=== PATIENT | male | born 1950 | race Caucasian/White ===

== ENCOUNTER 2019-02-28 00:15 | Outpatient (CLI) | payer OTHER, SELFPAY ==
--- NOTE | 2019-02-28 10:30 | MERGE_ITS ---
*[facility]* *[facility]* [address] [place] [address] Date of study: 02/28/2019 Transthoracic Echocardiography M-mode, complete 2D, complete spectral Doppler, and color Doppler *STUDY CONCLUSIONS* Summary: 1. Left ventricle: The cavity size was normal. There was severe asymmetric hypertrophy of the septum. Systolic function was at the lower limits of normal. The estimated ejection fraction was 50-55%. There was no dynamic obstruction. Akinesis of the basalinferolateral and inferior myocardium. Diastolic parameters were normal. 2. Aortic valve: Trileaflet. Sclerosis without stenosis. 3. 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 The maximal diameter was 4.5cm. 4. Mitral valve: Mildly calcified annulus. There was mild regurgitation directed eccentrically. 5. Right ventricle: The cavity size was dilated. Wall thickness was increased. Systolic function was mildly reduced by visual assessment. *PATIENT PRESENTATION* Height: 188cm (74in ) S/D Pressure: 136 / 83 Weight: 170.1kg (374.2lb ) BSA: 3.06m^2 Test start time: 10:40 AM. Test stop time: 11:40 AM. PERFORMING Unknown PERFORMING [facility] TECHNICAL AGRONOMIST RT Julian PortilloR)(CT), [facility] CONSULTING Agustní Neri ORDERING Agustín Neri REFERRING Agustín Neri [place], [place] *PROCEDURE DATA* Procedure information: This study was interpreted by [facility]. Pertinent images and digital data are archived for permanent storage and are available for subsequent review. No prior study was available for comparison. Study status: Routine. Transthoracic echocardiography. M-mode, complete 2D, complete spectral Doppler, and color Doppler. A Transthoracic Echocardiogram was performed. Scanning was performed from the parasternal, apical, subcostal, and suprasternal notch acoustic windows. Images were obtained using an [id number] cardiac ultrasound machine. Image quality was adequate. Study completion: The patient tolerated the procedure well. There were no complications. History: PMH: Coronary artery disease i25.10 *CARDIAC ANATOMY* Left ventricle: The cavity size was normal. There was severe asymmetric hypertrophy of the septum. Systolic function was at the lower limits of normal. The estimated ejection fraction was 50-55%. There was no dynamic obstruction. Regional wall motion abnormalities: Akinesis of the basalinferolateral and inferior myocardium. Diastolic parameters were normal. Aortic valve: Trileaflet. Sclerosis without stenosis. Mobility was not restricted. Doppler: Transvalvular velocity was within the normal range. There was no stenosis. There was no significant regurgitation. VTI ratio of LVOT to aortic valve: 0.62. Valve area (VTI): 2.6cm^2. Indexed valve area (VTI): 0.8cm^2/m^2. Peak velocity ratio of LVOT to aortic valve: 0.58. Valve area (Vmax): 2.4cm^2. Indexed valve area (Vmax): 0.8cm^2/m^2. Mean velocity ratio of LVOT to aortic valve: 0.51. Valve area (Vmean): 2.1cm^2. Indexed valve area (Vmean): 0.7cm^2/m^2. Mean gradient (S): 6.2mm Hg. Peak gradient (S): 10.8mm Hg. 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 The maximal diameter was 4.5cm. Aortic root: The aortic root was moderately dilated. Ascending aorta: The ascending aorta was moderately dilated. Aortic arch: The aortic arch was mildly dilated. Mitral valve: Mildly calcified annulus. Mobility was not restricted. Doppler: Transvalvular velocity was within the normal range. There was no evidence for stenosis. There was mild regurgitation directed eccentrically. Valve area by pressure half-time: 3.8cm^2. Indexed valve area by pressure half-time: 1.2cm^2/m^2. Peak gradient (D): 2.4mm Hg. Left atrium: The atrium was normal in size. Right ventricle: The cavity size was dilated. Wall thickness was increased. Systolic function was mildly reduced by visual assessment. Pulmonic valve: Doppler: Transvalvular velocity was within the normal range. There was no evidence for stenosis. There was no significant regurgitation. Peak gradient (S): 2.1mm Hg. Tricuspid valve: Structurally normal valve. Doppler: Transvalvular velocity was within the normal range. There was no evidence for stenosis. There was no significant regurgitation. Pulmonary artery: Systolic pressure could not be accurately estimated. Right atrium: The atrium was normal in size. Pericardium: There was no pericardial effusion. Systemic veins: Inferior vena cava: Well visualized. The vessel was patent and normal in size. The respirophasic diameter changes were blunted (less than 50%). Baseline ECG: Normal sinus rhythm. Measurements Left ventricle Value Reference LV ID, ED, PLAX (H) 7.3 cm 3.5 - 6.0 LV ID, ES, PLAX (H) 6.1 cm 2.1 - 4.0 LV PW thickness, ED, PLAX 0.8 cm --------- LV end-diastolic volume, 1-p A2C 170 ml --------- LV ejection fraction, 1-p A2C 23 % --------- LV end-diastolic volume, 1-p A4C 236 ml --------- LV ejection fraction, 1-p A4C 39 % --------- LV e', lateral 0.095 m/sec --------- LV E/e', lateral 8 --------- LV e', medial 0.097 m/sec --------- LV E/e', medial 8 --------- LV e', average 0.096 m/sec --------- LV E/e', average 8 --------- Ventricular septum Value Reference IVS thickness, ED, PLAX 1.8 cm --------- LVOT Value Reference LVOT ID, S 2.3 cm --------- LVOT ID, A-P 2.3 cm --------- LVOT area 4.2 cm^2 --------- LVOT peak velocity, S 0.95 m/sec --------- LVOT mean velocity, S 0.61 m/sec --------- LVOT VTI, S 20.3 cm --------- LVOT peak gradient, S 3.6 mm Hg --------- LVOT mean gradient, S 1.7 mm Hg --------- Stroke volume (SV), LVOT DP 101 ml --------- Stroke index (SV/bsa), LVOT DP 33 ml/m^2 --------- Aortic valve Value Reference Aortic valve peak velocity, S 1.6 m/sec --------- Aortic valve mean velocity, S 1.2 m/sec --------- Aortic valve VTI, S 33.0 cm --------- Aortic mean gradient, S 6.2 mm Hg --------- Aortic peak gradient, S 10.8 mm Hg --------- VTI ratio, LVOT/AV 0.62 --------- Aortic valve area, VTI 2.6 cm^2 --------- Velocity ratio, peak, LVOT/AV 0.58 --------- Aortic valve area, peak velocity 2.4 cm^2 --------- Velocity ratio, mean, LVOT/AV 0.51 --------- Aortic valve area, mean velocity 2.1 cm^2 --------- Aortic valve area/bsa, mean velocity 0.7 cm^2/m^2 --------- Aorta Value Reference Aortic root ID, ED 4.5 cm --------- Ascending aorta ID, A-P, S 4.4 cm --------- Left atrium Value Reference LA ID, A-P, ES 4.5 cm --------- LA ID/bsa, A-P 1.5 cm/m^2 <=2.2 LA volume/bsa, ES, 1-p A4C 27 ml/m^2 --------- LA/aortic root ratio 1 --------- Mitral valve Value Reference Mitral E-wave peak velocity 0.77 m/sec --------- Mitral A-wave peak velocity 0.78 m/sec --------- Mitral deceleration time 201 ms 150 - 230 Mitral pressure half-time 58 ms --------- Mitral peak gradient, D 2.4 mm Hg --------- Mitral E/A ratio, peak 0.99 --------- Mitral valve area, PHT, DP 3.8 cm^2 --------- Pulmonic valve Value Reference Pulmonic peak gradient, S 2.1 mm Hg --------- Legend: (L) and (H) lucian values outside specified reference range. I have personally reviewed the images and have reviewed and edited the reported findings. Electronically signed by Isaiah Wilkinson 02/28/2019 17:30
[2019-02-28 10:36] LABS: Bilirubin Negative (Negative); Blood Negative (Negative); Clarity Clear (Clear); Glucose Negative (Negative); Ketones Trace mg/dL (Negative); Leukocyte Esterase Negative (Negative); Nitrite Negative (Negative); Specific Gravity 1.025 (1.005-1.025); Urobilinogen 0.2 EU/dL (Up TO 0.2); pH 5.5 (5-8)
[2019-02-28 11:03] LABS: Bacteria Rare HPF (Negative); C & S Indicated? No; Casts Negative LPF (Negative); Crystals Negative HPF (Negative); Epithelial Cells Rare HPF (Negative); Mucus Moderate (Negative); RBC Negative (0-2); WBC 0-2 HPF (0-5)
[2019-02-28 11:35] LABS: ALT 38 U/L (12-78); AST 22 U/L (15-37); Albumin 3.6 g/dL (3.4-5.0); Alkaline Phosphatase 55 U/L (46-116); Anion Gap 8.8 mmol/L (3-11); BUN 14 mg/dL (7-18); Bilirubin, Total 0.3 mg/dL (0.2-1.0); CO2 27.2 mmol/L (21.0-32.0); CREATININE 0.86 mg/dL (0.70-1.30); Calcium 8.8 mg/dL (8.5-10.1); Chloride 105 mmol/L (98-107); Glucose 80 mg/dL (70-100); Potassium 4.6 mmol/L (3.5-5.1); Sodium 141 mmol/L (136-145); Total Protein 7.4 g/dL (6.4-8.2)
[2019-02-28 11:42] LABS: Microalb ug/mg Crea 20.5 ug/mg Cr
== END 2019-02-28 00:35 ==
PROVIDERS: PCP Internal Medicine; Visit Provider Orthopaedic Surgery
DX: I25.10 Atherosclerotic heart disease of native coronary artery without angina pectoris (principal); I71.2 Thoracic aortic aneurysm, without rupture; I34.8 Other nonrheumatic mitral valve disorders; I34.0 Nonrheumatic mitral (valve) insufficiency; I35.8 Other nonrheumatic aortic valve disorders; E11.65 Type 2 diabetes mellitus with hyperglycemia
CPT/HCPCS: 36415; 80053; 81003; 81015; 82043; 82570; 93306